=== PATIENT | male | born 1985 | race Caucasian/White ===

== ENCOUNTER 2019-10-17 15:20 | Emergency (ER) | payer OTHER, MEDICAID, SELFPAY ==
[2019-10-17] VITALS (15 sets, daily range): BP systolic 138–185; BP diastolic 83–120; PULSE 103–130; RESP 12–24; TEMP 36.4; O2SAT 93–100
--- NOTE | 2019-10-17 15:26 | DI.CT.S_ITS ---
PROCEDURE: CT FACIAL BONES WO CON INDICATIONS: trauma TECHNIQUE: Noncontrast 2.5 mm thick axial images acquired from the mandible through the frontal sinuses, with coronal and sagittal reformatting. For radiation dose reduction, the following was used: automated exposure control, adjustment of mA and/or kV according to patient size. COMPARISON: None. FINDINGS: Image quality: Excellent. Bones and teeth: Extensive facial bone fractures. Mildly depressed right orbital wall fracture. Lateral wall of right orbit fracture. Extensively comminuted lateral wall right maxillary sinus fracture with fracture fragments in the right maxillary sinus. Comminuted anterior wall right maxillary sinus fracture. Comminuted right zygomatic arch fracture. Comminuted nasal bone fractures. No mandibular fractures. Left TMJ subluxation. Sinuses: Hemorrhagic fluid in the right maxillary sinus. Patchy ethmoid opacification. Soft tissues: No edema, masses, or fluid collections. No enlarged lymph nodes. No soft tissue lacerations or debris. Vascular: Visualized vascular structures appear normal in the absence of contrast. Bony vascular foramina and canals are intact. IMPRESSION: 1. Extensive facial bone fractures, including lateral wall right orbit, inferior wall right orbit, right zygomatic arch, markedly comminuted lateral wall right maxillary sinus, comminuted anterior wall right maxillary sinus. 2. Nasal bone fractures. 3. Left TMJ subluxation. Dictated by: Derrell Garza M.D. on 10/17/2019 at 16:20 Approved by: Derrell Garza M.D. on 10/17/2019 at 16:31
--- NOTE | 2019-10-17 15:27 | DI.CT.S_ITS ---
PROCEDURE: CT CHEST ABD PEL W CON INDICATIONS: trauma TECHNIQUE: After the administration of intravenous contrast, 5 mm thick sections acquired from the lung apices to the symphysis. 2.5 mm thick coronal and sagittal reformats were acquired. Additional 7 mm thick coronal maximum intensity projection (MIP) reformats acquired through the lungs. Optional 10-minute delayed imaging may be performed from the kidneys to the bladder. For radiation dose reduction, the following was used: automated exposure control, adjustment of mA and/or kV according to patient size. COMPARISON: None. FINDINGS: Image quality: Limited by patient motion. CHEST: Lungs: No pulmonary contusions or lacerations. No acute airspace opacities. No pneumothorax or hemothorax. Central and peripheral airways appear patent and normal in caliber. Mediastinum: No mediastinal hematomas. Heart size is normal. No pericardial effusion. Thoracic aorta and pulmonary arteries demonstrate normal size and enhancement. No mediastinal or hilar adenopathy. Esophagus is normal in caliber. No hiatal hernia. Chest wall: No rib fractures. No subcutaneous emphysema. No axillary or supraclavicular adenopathy. Thyroid gland is normal where visualized. ABDOMEN: Solid organs: Liver is normal in size and enhancement, without lacerations. Gallbladder is normal. Biliary system is non-dilated. Pancreas enhances normally, without transection. Spleen is normal in size and enhancement, without lacerations. No adrenal hematomas. Both kidneys enhance normally, without hydronephrosis or lacerations. Peritoneum and bowel: No free fluid or air. Unenhanced bowel loops demonstrate normal wall thickness and caliber. Scattered diverticuli noted in the sigmoid colon without evidence of diverticulitis. Nodes and vessels: No retroperitoneal or mesenteric adenopathy. Aorta and inferior vena cava are normal in size and enhancement. Miscellaneous: No ventral hernias. PELVIS: Genitourinary: Bladder wall thickness is normal. Miscellaneous: No inguinal hernias or adenopathy. Bones: Pelvic ring and hip joints appear intact. No vertebral compression fractures. Spine degenerative disc disease and facet arthropathy. IMPRESSION: 1. Image quality by patient motion artifact. 2. No acute traumatic injury within the limitations related to motion artifact. Dictated by: Alannah Candelaria MD, PhD on 10/17/2019 at 16:14 Approved by: Alannah Candelaria MD, PhD on 10/17/2019 at 16:27
--- NOTE | 2019-10-17 15:27 | DI.CT.S_ITS ---
PROCEDURE: CT HEAD/BRAIN WO CON INDICATIONS: trauma TECHNIQUE: Noncontrast 4.5 mm thick angled axial sections acquired from the foramen magnum to the vertex, with coronal and sagittal reformats. For radiation dose reduction, the following was used: automated exposure control, adjustment of mA and/or kV according to patient size. COMPARISON: None. FINDINGS: Image quality: Excellent. CSF spaces: Basal cisterns are patent. No extra-axial fluid collections. Ventricles are normal in size and shape. Brain: No midline shift. Spherical area of hemorrhage adjacent to the right lateral ventricle with minimal mass effect on the right lateral ventricle measuring approximately 0.7 x 0.9-1.2 cm. No other foci of intracranial hemorrhage. No intra-axial or extra-axial fluid collections. The ventricles are of normal size, shape, and position. Byrnes-white matter interface is normal. Skull and face: The anterior wall right maxillary sinus fracture. Comminuted lateral wall right maxillary sinus fracture. Right orbital floor fracture. Right zygomatic arch fracture. Nasal bone fractures. A the Sinuses: Products of hemorrhage in the right maxillary sinus. IMPRESSION: 1. Extensive facial fractures, including a right ZMC complex fracture (zygomatic arch, orbital floor, lateral wall maxillary sinus, and to ensure wall maxillary sinus fractures. 2. Nasal bone fractures. 3. Spherical focus of intracranial hemorrhage in the deep white matter adjacent to the right lateral ventricle. Cannot exclude an underlying mass. Comment: At some point, the patient may potentially benefit from MRI with and without contrast to exclude an underlying lesion. Dictated by: Derrell Garza M.D. on 10/17/2019 at 16:16 Approved by: Derrell Garza M.D. on 10/17/2019 at 16:20
--- NOTE | 2019-10-17 15:27 | DI.RAD.S_ITS ---
PROCEDURE: XR PELVIS 1-2V INDICATIONS: trauma TECHNIQUE: 1 view(s) of the pelvis acquired. COMPARISON: [facility], CT, CT CHEST ABD PEL W CON, 10/17/2019, 15:31. FINDINGS: Bones: No displaced pelvic fractures or dislocations. No suspicious bony lesions. Mild degenerative changes of the pelvic joints are present. Soft tissues: Visualized bowel gas pattern is normal. No suspicious soft tissue calcifications. IMPRESSION: No displaced pelvic fractures. Dictated by: Yousif Dowd M.D. on 10/17/2019 at 15:33 Approved by: Yousif Dowd M.D. on 10/17/2019 at 15:34
--- NOTE | 2019-10-17 15:27 | DI.CT.S_ITS ---
PROCEDURE: CT CERVICAL SPINE WO CON INDICATIONS: trauma TECHNIQUE: Noncontrast 3 mm thick sections acquired from the skull base to the T4 level. Sagittal and coronal reformats were then constructed. For radiation dose reduction, the following was used: automated exposure control, adjustment of mA and/or kV according to patient size. COMPARISON: None. FINDINGS: Image quality: Excellent. Bones: No cervical fractures or dislocations. Note is made of fractures of the inferior wall of the right orbit, lateral wall of the right maxillary sinus, and right zygomatic arch. Right maxillary sinus air-fluid level. Visualized superior ribs are intact. Soft tissues: Prevertebral soft tissues are normal in thickness. No paravertebral hematomas. No apical pneumothoraces. IMPRESSION: 1. No evidence of cervical fracture or dislocation. 2. Right-sided tripod fracture. Dictated by: Derrell Garza M.D. on 10/17/2019 at 16:12 Approved by: Derrell Garza M.D. on 10/17/2019 at 16:15
--- NOTE | 2019-10-17 15:27 | DI.RAD.S_ITS ---
PROCEDURE: XR CHEST 1V INDICATIONS: trauma TECHNIQUE: One view of the chest was acquired. COMPARISON: [facility], CR, XR CHEST 2VW, 07/01/2017, 15:25. FINDINGS: Surgical changes and devices: None. Lungs and pleura: Lungs are clear. Low lung volumes are present. No pleural effusions or pneumothorax. Mediastinum: Mediastinal contours appear normal. Heart size is normal. Bones and chest wall: No suspicious bony lesions. Overlying soft tissues appear unremarkable. IMPRESSION: Stable chest. No acute cardiopulmonary process is evident. Dictated by: Yousif Dowd M.D. on 10/17/2019 at 15:31 Approved by: Yousif Dowd M.D. on 10/17/2019 at 15:32
[2019-10-17 15:40] LABS: Add Manual Diff / Slide Review NO; Basophils Absolute Auto 100 /uL (0-100); Basophils Percent Auto 0.7 % (0-2); Eosinophils Absolute Auto 100 /uL (0-450); Eosinophils Percent Auto 1.8 % (2-4); Hematocrit 44.3 % (41-53); Hemoglobin 16.1 g/dL (13.5-17.5); Lymphocytes Absolute Auto 4000 /uL (1100-4500); Mean Corpuscular HGB Conc 36.3 % (30-36); Mean Corpuscular Hemoglobin 35.3 PG (26-34); Mean Corpuscular Volume 97.4 fL (80-100); Monocytes Absolute Auto 500 /uL (0-900); Monocytes Percent Auto 6.6 % (3-14); Neutrophils Absolute Auto 3200 /uL (1500-7000); Neutrophils Percent Auto 39.9 % (50-75); Platelet Count 359 X10^3/uL (150-400); Red Blood Cell Count 4.55 X10^6/uL (4.5-5.9); Red Cell Distribution Width 13.4 % (11.6-14.8); White Blood Cell Count 7.9 X10^3/uL (4.5-11.0)
[2019-10-17 15:44] LABS: Alanine Aminotransferase 57 IU/L (<50); Albumin 4.5 g/dL (3.5-5.0); Albumin Globulin Ratio 1.5 (1.0-2.8); Alkaline Phosphatase 61 U/L (38-126); Aspartate Aminotransferase 67 IU/L (17-59); Bilirubin Total 0.5 mg/dL (0.2-1.3); Blood Urea Nitrogen 18 mg/dL (9-20); Calcium 8.7 mg/dL (8.4-10.2); Carbon Dioxide 23 mmol/L (22-32); Chloride 110 mmol/L (98-107); Estimated Glomerular Filt Rate > 60.0 mL/min (>60); Ethanol (ETOH) 234 mg/dL; Glucose 93 mg/dL (70-100); Lipase 102 U/L (23-300); Sodium 146 mmol/L (137-145); Total Protein 7.5 g/dL (6.3-8.2)
[2019-10-17 15:45] LABS: HEMOLYSIS 54 (0-50)
[2019-10-17] MEDS: SODIUM CHLORIDE 0.9% 1,000 ML 150 ML IV (15:45)
[2019-10-17 15:46] LABS: Potassium 4.4 mmol/L (3.4-5.1)
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
[2019-10-17] MEDS: TET,DIPH,PERTUSS(ACELL),VAC/PF 0.5 ML SYRINGE IM (16:59)
[2019-10-17] MEDS: LIDOCAINE 2% W/EPI INJ 1 ML INJ (17:01)
[2019-10-17] MEDS: KETOROLAC 60 MG/2 ML VIAL 30 MG IV (18:41)
[2019-10-17] MEDS: BACITRACIN OINT 0.9 GM PCKT 4 APPLIC TOP (18:42)
--- NOTE | 2019-10-17 20:18 | PC.NURSE ---
Lacerations to forehead and nose irrigated copiously with sterile water. Abrasions to hands irrigated, scrubbed, Bacitracin and band-aids applied. Abrasion left tian cleaned, Bacitracin and band-aid applied.
== END 2019-10-17 19:16 | disposition short-term general hospital (02) ==
PROVIDERS: Emergency Provider Emergency Medicine; Family Provider Family Medicine; PCP Family Medicine
DX: S02.31XA Fracture of orbital floor, right side, initial encounter for closed fracture (principal); S02.19XA Other fracture of base of skull, initial encounter for closed fracture; S02.40EA Zygomatic fracture, right side, initial encounter for closed fracture; V86.99XA Unspecified occupant of other special all-terrain or other off-road motor vehicle injured in nontraffic accident, initial encounter; S01.111A Laceration without foreign body of right eyelid and periocular area, initial encounter; S01.21XA Laceration without foreign body of nose, initial encounter; S09.90XA Unspecified injury of head, initial encounter; R51 Headache; Z23 Encounter for immunization
CPT/HCPCS: 36415; 70450; 70486; 71045; 71260; 72125; 72170; 74177; 80053; 80320; 81003; 83690; 85025; 86850; 86900; 86901; 90471; 93005; 96372; 96374; 99285; 90715; J1885